=== PATIENT | male | born 1965 | race Two or more races ===

== ENCOUNTER 2020-03-06 05:19 | Emergency (ER) | payer OTHER, SELFPAY ==
[2020-03-06 05:28] VITALS: BP 123/76; PULSE 85; RESP 16; TEMP 36.7; O2SAT 96; BMI 30.7
[2020-03-06 05:44] VITALS: BP 123/65; PULSE 88; RESP 18; TEMP 36.8; O2SAT 96
--- NOTE | 2020-03-06 07:44 | ED.EXTPRO ---
HPI - Extremity Problem General Chief complaint: Extremity Problem Stated complaint: Foot pain Time Seen by Provider: 03/06/20 07:35 Source: patient Mode of arrival: ambulatory Limitations: no limitations History of Present Illness HPI Narrative: is a 54-year-old male who presents with complaints of bilateral foot pain in as he does not have any shoes and is homeless and has been walking around in the streets of [place] with 2 pairs of socks on each foot. He denies any fevers, chills, or trauma. But states his feet are very sore due to walking on them for so long without shoes. Related Data Home Medications Medication Instructions Recorded Confirmed No Known Home Meds 03/06/20 03/06/20 Allergies Allergy/AdvReac Type Severity Reaction Status Date / Time No Known Allergies Allergy Verified 03/06/20 05:27 Review of Systems Review of Systems: Pertinent positives and negatives as stated in HPI 10 point review systems otherwise negative. PMFSH Past Medical History Source: nursing notes reviewed Medical History No known health problems Social History Social History Alcohol intake: current Alcohol intake frequency: a few times a week Alcohol type: beer and hard liquor Smoking Status: Current every day smoker Substance Use Type: Marijuana Substance Use Frequency: Daily Last Used Substance: Days (ago) Advance Directives: No Advance Directives Information Provided: No Physical Exam Vital Signs: Vital Signs: Vital Signs Temp Pulse Resp BP Pulse Ox 03/06/20 08:09 16 03/06/20 05:44 98.2 F 88 18 123/65 96 03/06/20 05:28 98.0 F 85 16 123/76 96 Body Mass Index 30.7 VITAL SIGNS: Reviewed. GENERAL: Well developed, well nourished, in no acute distress. HEAD: Normocephalic/atraumatic, EYES: PERRLA, EOMI intact without pain, no nystagmus/pallor/icterus noted EARS: Ext canals without abnormality, TMs non-bulging and non-erythematous NOSE: Nares patent bilateral OROPHARYNX: no oral lesions noted, posterior pharynx clear and non-erythematous without noted tonsillar enlargement/erythema/exudates NECK: Supple, no adenopathy LUNGS: Normal breath sounds. No adventitious sounds or accessory muscle use. SpO2<96> CARDIOVASCULAR: Regular rate and rhythm without noted murmurs, no JVD or lower extremity edema. ABDOMEN: Soft, non-tender, non-distended with bowel sounds. No rigidity. No guarding. No palpable masses or hernias noted MUSCULOSKELETAL: No tenderness, deformities, or effusions noted on gross inspection. EXTREMITIES: No cyanosis, clubbing or edema; BILATERAL FEET: there is no obvious edema, erythema of the feet, sensation is intact, symmetric palpable DP/PT pulses, there is obvious evidence of an inter digit skin breakdown due to moisture with no obvious signs of ulcerations, deformities SKIN: Inspection of the skin reveals no rashes, ulcerations, jaundice, pallor, or petechiae. NEUROLOGIC: Alert and oriented x 4. Strength and sensation to light touch were grossly intact x 4. Course Course Course Narrative: this is a 54-year-old male with history and clinical presentation consistent with mild bilateral foot injury due to no shoes. There is no evidence for frostbite or trench foot at this time, however due to the mild skin breakdown this is likely to occur if patient is unable to get proper footwear to wear outside. Consult placed to Care Team to assist. Case management was able to provide a pair of size 12 shoes for the patient to use and he was discharged in stable condition. Discharge Plan Discharge Clinical Impression: Foot and toe(s), blister, without mention of infection Patient Disposition: Home, Self-Care Additional Instructions: The patient and/or family acknowledge understanding of results (as applicable), diagnosis, treatment plan, need for follow up, and symptoms that should prompt a return to the emergency room. Prescriptions: No Action No Known Home Meds RF: 0 Referrals: Physician,Unknown [Primary Care Provider] - 2 days
--- NOTE | 2020-03-06 08:07 | PC.NURSE ---
pt resting on stretcher. no distress. consult was placed to CARE team, was told pt had no shoes to wear out of hospital. pt has boots next to bed. when asked pt if he could wear those he states they hurt his feet . spoke with Nemo from care team, she is going to take a look and see if any shoe available for patient.
[2020-03-06 08:09] VITALS: RESP 16
--- NOTE | 2020-03-06 08:32 | PC.NURSE ---
pt given sneakers. pt upset because he is homeless and said shelters have turned him away. 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 RN applied foam dressing to bottom of feet where calluses are. given food and drink. informed pt he can call shelters from waiting room. pt agreeable.
== END 2020-03-06 09:00 | disposition home or self-care (01) ==
PROVIDERS: Emergency Provider Student in an Organized Health Care Education/Training Program
DX: S90.425A Blister (nonthermal), left lesser toe(s), initial encounter (principal); S90.424A Blister (nonthermal), right lesser toe(s), initial encounter; M79.672 Pain in left foot; M79.671 Pain in right foot; X39.8XXA Other exposure to forces of nature, initial encounter; Y93.29 Activity, other involving ice and snow; Y92.410 Unspecified street and highway as the place of occurrence of the external cause; Y99.9 Unspecified external cause status; F12.90 Cannabis use, unspecified, uncomplicated; F17.200 Nicotine dependence, unspecified, uncomplicated; Z71.6 Tobacco abuse counseling; Z59.0 Homelessness
CPT/HCPCS: 99284

== ENCOUNTER 2020-03-17 21:00 | Emergency (ER) | payer OTHER, SELFPAY ==
[2020-03-17 21:13] VITALS: BP 139/84; PULSE 112; RESP 20; TEMP 37.3; O2SAT 98; BMI 27.4
--- NOTE | 2020-03-17 21:27 | XR_ITS ---
EXAMINATION: XR BILATERAL FEET: 3 VIEWS EACH CLINICAL INFORMATION: Swelling COMPARISON: None FINDINGS: No acute fracture or dislocation. Osseous alignment maintained. Small first metatarsophalangeal joint marginal osteophytes. Small tibiotalar marginal osteophytes. Small posterior plantar calcaneal enthesophytes. No ankle joint effusion. Soft tissues unremarkable XR/XR foot LT min 3V IMPRESSION: No acute fracture or dislocation.
--- NOTE | 2020-03-17 21:27 | XR_ITS ---
EXAMINATION: XR BILATERAL FEET: 3 VIEWS EACH CLINICAL INFORMATION: Swelling COMPARISON: None FINDINGS: No acute fracture or dislocation. Osseous alignment maintained. Small first metatarsophalangeal joint marginal osteophytes. Small tibiotalar marginal osteophytes. Small posterior plantar calcaneal enthesophytes. No ankle joint effusion. Soft tissues unremarkable XR/XR foot RT min 3V IMPRESSION: No acute fracture or dislocation.
--- NOTE | 2020-03-17 21:37 | ED_ITS ---
HPI - Extremity Injury (Lower) General Chief Complaint: Extremity Injury, Lower Stated Complaint: Foot Pain Time Seen by Provider: 03/17/20 21:27 Source: patient Mode of arrival: ambulatory Limitations: no limitations History of Present Illness HPI Narrative: This is 54-year-old male who presents with complaints of bilateral foot discomfort and swelling that he states has been ongoing for a number weeks now but denies any associated fevers, chills. He denies any traumatic event to the feet and simply states that he has to walk a lot in [place] and that his feet are sore due to this. Related Data Home Medications Medication Instructions Recorded Confirmed No Known Home Meds 03/06/20 03/06/20 Allergies Allergy/AdvReac Type Severity Reaction Status Date / Time No Known Allergies Allergy Verified 03/06/20 05:27 Review of Systems Review of Systems: Pertinent positives and negatives as stated in HPI 10 point review of systems otherwise negative. [facility] Past Medical History Source: nursing notes reviewed Medical History No known health problems Social History Social History Alcohol intake: current Alcohol intake frequency: a few times a month Alcohol type: beer and hard liquor Smoking Status: Current every day smoker Substance Use Type: Marijuana Advance Directives: No Physical Exam Vital Signs: Vital Signs: Last Vital Signs Temp 99.1 F 03/17/20 21:13 Pulse 112 H 03/17/20 21:13 Resp 20 03/17/20 21:13 BP 139/84 03/17/20 21:13 Pulse Ox 98 03/17/20 21:13 Body Mass Index 27.4 VITAL SIGNS: Reviewed. GENERAL: Well developed, well nourished, in no acute distress. HEAD: Normocephalic/atraumatic, EYES: PERRLA, EOMI intact without pain, no nystagmus/pallor/icterus noted EARS: Ext canals without abnormality, TMs non-bulging and non-erythematous NOSE: Nares patent bilateral OROPHARYNX: no oral lesions noted, posterior pharynx clear and non-erythematous without noted tonsillar enlargement/erythema/exudates NECK: Supple, no adenopathy LUNGS: Normal breath sounds. No adventitious sounds or accessory muscle use. SpO2<98> CARDIOVASCULAR: Regular rate and rhythm without noted murmurs, no JVD or lower extremity edema. ABDOMEN: Soft, non-tender, non-distended with bowel sounds. No rigidity. No guarding. No palpable masses or hernias noted MUSCULOSKELETAL: No tenderness, deformities, or effusions noted on gross inspection. EXTREMITIES: No cyanosis, clubbing or edema; BILATERAL FEET: there are no obvious ulcerations or open wounds on inspection, no noted deformities, capillary refill less than 3 seconds, and otherwise neurovascular intact bilaterally, with noted toe fungus on multiple toes. SKIN: Inspection of the skin reveals no rashes, ulcerations, jaundice, pallor, or petechiae. NEUROLOGIC: Alert and oriented x 4. Strength and sensation to light touch were grossly intact x 4. Course Course Course Narrative: This is a 54-year-old male with history and clinical presentation consistent with poor foot care, but no obvious wounds or evidence to suggest diagnoses such as a trench foot. Will obtain x-rays to ascertain that there are no occult fractures such as stress fractures. This patient does have a new pair tennis shoes available for footwear. Discharge Plan Discharge Clinical Impression: Foot and toe(s), blister, without mention of infection Patient Disposition: Home, Self-Care Instructions: Adrienne (ED) Additional Instructions: 1. Las radiograf?as de nayeli pies son negativas para evidencia de fractura o dislocaci?n. 2. debe cambiarle los calcetines dos veces al d?a para mantener los pies secos y evitar la exposici?n de los pies o las zapatillas al agua. El paciente y / o la alexa reconocen que comprenden los resultados (seg?n corresponda), el diagn?stico, el plan de tratamiento, la necesidad de seguimiento y los s?ntomas que deber?an impulsar el regreso a la luca de emergencias. Prescriptions: No Action No Known Home Meds RF: 0 Referrals: Physician,Unknown [Primary Care Provider] - 2 days Print Language: Thai
== END 2020-03-17 22:47 | disposition home or self-care (01) ==
PROVIDERS: Emergency Provider Student in an Organized Health Care Education/Training Program
DX: S90.822A Blister (nonthermal), left foot, initial encounter (principal); S90.821A Blister (nonthermal), right foot, initial encounter; M79.672 Pain in left foot; M79.671 Pain in right foot; F17.210 Nicotine dependence, cigarettes, uncomplicated; Z71.6 Tobacco abuse counseling
CPT/HCPCS: 73630; 99283

== ENCOUNTER 2020-08-14 18:11 | Emergency (ER) | payer OTHER, SELFPAY ==
--- NOTE | ~2020-08-14 | CT_ITS ---
EXAMINATION: CT HEAD WITHOUT CONTRAST CT CERVICAL SPINE WITHOUT CONTRAST CLINICAL INFORMATION: Possible fall. COMPARISON: None available. TECHNIQUE: Contiguous axial imaging was performed from the skull base to vertex without intravenous administration of contrast. Contiguous axial imaging was performed from the upper chest through the skull base without intravenous administration of contrast. Coronal and sagittal reformats were obtained at the acquisition workstation. This CT examination was performed using dose optimization techniques as appropriate, variously including the following: *Automated exposure control. *Adjustment of mA and/or kV according to patient size (this includes techniques or standardized protocols for targeted exams where dose is matched to indication/reason for exam; i.e. extremities or head). *Use of iterative reconstruction technique. DLP: 1315 mGy-cm FINDINGS: Head: There is no evidence of acute intracranial hemorrhage or edematous territorial infarction. There is no abnormal attenuation within the brain parenchyma. Metz-white matter differentiation is preserved. The ventricles are normal in size and configuration. No evidence for obstructive hydrocephalus. No abnormal mass effect or midline shift. No extra-axial fluid collections. No acute soft tissue or osseous abnormalities. Moderate mucosal thickening of the paranasal sinuses. Mucous retention cyst within the left maxillary sinus. The mastoid air cells and middle ear cavities are clear. Odontogenic disease associated with the bilateral maxillary molars. Cervical Spine: The atlantooccipital and atlantoaxial articulations remain well aligned. Straightening of the normal cervical lordosis. Otherwise, there is anatomic alignment of the vertebral bodies and posterior elements. No evidence of acute fracture or subluxation. Moderate degenerative disc disease from C5-C7 with associated disc-osteophyte complex formation. Facet and uncovertebral joint arthropathy leads to osseous encroachment on the neural foramina from C3-T1. The vertebral body heights are well-maintained. There is no prevertebral soft tissue swelling. The thyroid gland and remaining cervical soft tissues are normal in appearance. The lung apices demonstrate no abnormalities. CT/CT cervical spine wo con IMPRESSION: 1. No evidence of acute intracranial hemorrhage or edematous territorial infarction. 2. No evidence of acute fracture or traumatic subluxation of the cervical spine. 3. Moderate multilevel degenerative spondyloarthropathy of the cervical spine.
[2020-08-14 18:34] VITALS: BP 119/90; BP 180/90; PULSE 82; RESP 16; TEMP 36.7; O2SAT 92; O2SAT 95; BMI 28.2
--- NOTE | 2020-08-14 18:47 | ED_ITS ---
HPI - General Adult General Chief complaint: ETOH/Substance Use Stated complaint: OD Time Seen by Provider: 08/14/20 19:14 Source: patient Mode of arrival: ambulatory Limitations: no limitations History of Present Illness HPI narrative: Patient presents to ED for evaluation for possible overdose. As per EMS report patient responded to 4 mg of Narcan. Patient himself denies any history of opiates. Patient states he has drank only 6 nips of alcohol. Patient states he smoke weed in might have been laced which caused him to pass out. Patient presently does not want any detox. Patient does not want any blood work done. Patient denies falling onto the ground. Related Data Home Medications Medication Instructions Recorded Confirmed cyclobenzaprine 1 tab PO TID 03/21/20 03/21/20 tramadol 1 tab PO BID 03/21/20 03/21/20 Allergies Allergy/AdvReac Type Severity Reaction Status Date / Time No Known Allergies Allergy Verified 03/06/20 05:27 Review of Systems Review of Systems: Yes all other systems are reviewed and are negative Constitutional: Constitutional: Reports as per HPI and Reports no additional constitutional complaints Eyes: Eyes: Reports as per HPI and Reports no additional eye complaints ENT: Reports system reviewed and no additional complaints, except as documented and Reports as per HPI Cardiovascular: Cardiovascular: Reports as per HPI and Reports no additional cardiovascular complaints Respiratory: Respiratory: Reports as per HPI and Reports no additional respiratory complaints Gastrointestinal: Gastrointestinal: Reports as per HPI and Reports no additional gastrointestinal complaints Musculoskeletal: Musculoskeletal: Reports no additional musculoskeletal complaints and Reports as per HPI Neurologic: Reports system reviewed and no additional complaints, except as documented and Reports as per HPI Psychiatric: Psychiatric: Reports no additional psychiatric complaints and Reports as per HPI [facility] Past Medical History Medical History (Updated 08/15/20 @ 00:01 by Balbina Blake) Arthritis Depression History of anxiety History of cardiac murmur Lab test negative for COVID-19 virus Substance abuse Surgical History (Updated 03/21/20 @ 13:27 by Deepti Lund) Hx of excision of mass Hx of right inguinal hernia repair Social History Social History (Updated 03/21/20 @ 13:28 by Deepti Lund) Alcohol intake: current Alcohol intake frequency: a few times a month Alcohol type: beer and hard liquor Smoking Status: Current every day smoker Packs Per Day: 0.75 Cigarettes Per Day: 15.0 Substance Use Type: Marijuana Advance Directives: No Advance Directives Information Provided: Yes Physical Exam Vital Signs: Vital Signs: Last Vital Signs Temp 98.0 F 08/14/20 18:34 Pulse 82 08/14/20 18:34 Resp 16 08/14/20 18:34 BP 119/90 H 08/14/20 18:34 Pulse Ox 92 08/14/20 18:34 Body Mass Index 28.2 Const: General: cooperative, healthy appearing, comfortable, no acute distress, well developed, alert, awake and Physically active Orientation/consciousness: patient oriented x3 HENMT: Head: Yes normal to inspection, Yes No palpable skull fracture present, Yes normocephalic and Yes atraumatic Eyes: General: appearance normal, both eyes and all related structures Neck: Neck: Yes normal visual inspection, Yes full ROM, Yes no lymphadenopathy, Yes no meningeal signs, Yes trachea midline, Yes supple and No tender Chest: Chest palpation & inspection: normal inspection of the chest and normal palpation of entire chest wall Resp: Effort & Inspection: normal respiratory effort and able to speak in complete sentences Cardio: Jugular venous distension: no JVD Heart sounds: S1 normal heart sound present and S2 normal heart sound present GI: Inspection: Yes normal to inspection Palpation (GI): Soft to palpation, not firm, nontender, no guarding and not rigid : General: No CVA tenderness and Yes no CVA tenderness Back/Spine/Pelvis: Back: no CVA tenderness, No CVA tenderness and No back tenderness Skin: General skin exam: no rashes or lesions noted and elasticity normal Neuro: General: patient oriented x3, no meningeal signs and CN's II-XI intact bilaterally Cranial nerves: Yes CN's II-XII intact bilaterally Extrem: General: Yes normal to inspection and Yes full ROM Psych: Appearance: grossly normal, well kempt and not disheveled Course Course Course Narrative: Patient presently is alert oriented x3. Patient presently is not inebriated. Patient wants to be discharged presently, I convinced patient for studies the head CT and cervical spine and observe his O2 saturation. Patient states he was not trying to kill himself. Patient is not homicidal. Reevaluation(s) Reevaluation #1: Patient does not want to wait for CT scan results. Repeat O2 saturation on monitor was 97%. Patient willing to signed out against medical advice even after being informed the risk of , disability, and decreased quality of life due to possible brain bleed, neck fracture, respiratory failure, or possibility of fatal overdose. Patient still wanted to sign out against medical advice. Medical Decision Making MDM Narrative Medical decision making narrative: Substance abuse Discharge Plan Discharge Clinical Impression: Substance abuse Patient Disposition: Left Against Medical Advice Instructions: Polysubstance Abuse (ED) Additional Instructions: Regrese al servicio de urgencias de inmediato si tiene dolor de evan, mareos, n?useas, v?mitos, dolor de pecho, dificultad para respirar, dolor de jesse, dolor abdominal, dolor de espalda, sangrado rectal, v?mitos de tari o cualquier otro s?ntoma que le preocupe. Regrese al servicio de urgencias inmediatamente tambi?n por ideaci?n suicida / homicida y alucinaciones auditivas / visuales. Prescriptions: No Action cyclobenzaprine 10 mg tablet 1 tab PO TID RF: 0 tramadol 50 mg tablet 1 tab PO BID RF: 0 Referrals: Lia Vivas MD [Primary Care Provider] - 2 days (Substance abuse) Stand Alone Forms: Against Medical Advice Interventions: ED Discharge Assessment Last Done: 08/14/20 19:20 Discharge Date/Time: 08/14/20 19:21
--- NOTE | 2020-08-14 18:54 | PC.NURSE ---
Pt refusing to change into hospital attire- searched by security.
== END 2020-08-14 19:21 | disposition left against medical advice (07) ==
PROVIDERS: Emergency Provider Emergency Medicine; PCP Internal Medicine
DX: F19.10 Other psychoactive substance abuse, uncomplicated (principal); F12.10 Cannabis abuse, uncomplicated; F17.210 Nicotine dependence, cigarettes, uncomplicated
CPT/HCPCS: 70450; 72125; 99283; 99284

== ENCOUNTER 2020-09-03 18:12 | Emergency (ER) | payer MEDICAID, SELFPAY ==
[2020-09-03 18:27] VITALS: BP 196/100; O2SAT 96
[2020-09-03 18:28] VITALS: BP 161/84; PULSE 94; RESP 18; TEMP 36.6; O2SAT 96; BMI 28.7
--- NOTE | 2020-09-03 18:51 | ED.OVERDOSE ---
HPI - Overdose General Chief Complaint: Overdose Stated Complaint: OD Time Seen by Provider: 09/03/20 19:07 Source: EMS Mode of arrival: EMS Limitations: no limitations History of Present Illness HPI Narrative: Jose is a 54-year-old male with history of polysubstance abuse he comes in by ambulance with complaint of overdose. He along with 3 other patients who checked in within a 5 minutes. Were all hanging out and overdosed on heroin. He required 4 mg of Narcan for reversal and at scene was found by EMS with agonal breathing and required rescue breaths. Patient immediately awoke admits to using heroin states he did not feel like he used too much and was a necessary for him to get the Narcan. He otherwise feels he is fine he does not need to be here he got off the EMS stretcher directly upon arrival requesting to be discharged. He otherwise denies any pain or discomfort no recent injury. He does not feel that his substance is a problem and is requesting discharge. MD complaint: accidental overdose Onset (ago): minute(s) Timing confirmed by: other (Bystander) Treatments Prior to Arrival: narcan and other (Brief rescue breathing) Related Data Home Medications Medication Instructions Recorded Confirmed cyclobenzaprine 1 tab PO TID 03/21/20 03/21/20 tramadol 1 tab PO BID 03/21/20 03/21/20 Allergies Allergy/AdvReac Type Severity Reaction Status Date / Time No Known Allergies Allergy Verified 03/06/20 05:27 Review of Systems Review of Systems: Constitutional: No Weight loss, No Fever, No Chills, No Night Sweats, No Fatigue, No Malaise ENT/Mouth: No Hearing loss, No Ear Pain, No Nasal Congestion, No Sinus Pain, No Hoarseness, No sore throat, No Rhinorrhea, No Swallowing Difficulty Eyes: No Eye Pain, No Swelling, No Redness, No Foreign Body, No Discharge, No Vision Changes Cardiovascular: No Chest Pain, No SOB, No Dyspnea on Exertion, No Orthopnea, No Edema, No Palpitations Respiratory: No Cough, No Sputum, No Wheezing, No Smoke Exposure, No Dyspnea Gastrointestinal: No Nausea, No Vomiting, No Diarrhea, No Constipation, No abdominal Pain, No Hematochezia, No Melena Genitourinary: No Dysuria, No Urinary Frequency, No Hematuria, No Urinary Incontinence, No Urgency, No Flank Pain, No Urinary Flow Changes, No Hesitancy Musculoskeletal: No joint pain, No Myalgias, No Joint Swelling Skin: No Skin Lesions, No rash Neuro: No Weakness, No Numbness, No Paresthesias, No Loss of Consciousness, No Dizziness, No Headache Psych: No Anxiety/Panic, No Depression, No SI/HI/AH/VH, No Social Issues Heme/Lymph: No Bruising, No Bleeding,No Lymphadenopathy Endocrine: No Polyuria, No Polydipsia, No Temperature Intolerance Yes all other systems are reviewed and are negative [facility] Past Medical History Medical History Arthritis Depression History of anxiety History of cardiac murmur Lab test negative for COVID-19 virus Substance abuse Surgical History Hx of excision of mass Hx of right inguinal hernia repair Social History Social History (Updated 03/21/20 @ 13:28 by Deepti Lund) Alcohol intake: current Alcohol intake frequency: a few times a month Alcohol type: beer and hard liquor Smoking Status: Current every day smoker Packs Per Day: 0.75 Cigarettes Per Day: 15.0 Substance Use Type: Marijuana Advance Directives: No Advance Directives Information Provided: Yes Physical Exam Vital Signs: Vital Signs: Last Vital Signs Temp 97.8 F 09/03/20 18:28 Pulse 94 09/03/20 18:28 Resp 18 09/03/20 18:28 BP 161/84 H 09/03/20 18:28 Pulse Ox 96 09/03/20 18:28 Body Mass Index 28.7 Reviewed Const: General: cooperative; No acute distress or intoxicated appearing Nutritional Appearance: average body habitus Orientation/consciousness: patient oriented x3 HENMT: Head: Yes normal to inspection Ears: hearing grossly normal bilaterally Eyes: General: appearance normal, both eyes and all related structures Visual Wan: normal visual wan by confrontation Neck: Neck: Yes normal visual inspection, No positive Brudzinski's sign, No positive Kernig's sign and No tender Thyroid: Thyroid normal Chest: Chest palpation & inspection: normal inspection of the chest Resp: Effort & Inspection: normal respiratory effort Auscultation: clear to auscultation bilaterally Cardio: Jugular venous distension: no JVD Rhythm: regular rhythm Heart sounds: S1 normal heart sound present and S2 normal heart sound present GI: Inspection: Yes normal to inspection Palpation (GI): Soft to palpation Percussion: Yes normal to percussion Auscultation: normal bowel sounds : General: Yes no CVA tenderness Back/Spine/Pelvis: Back: no CVA tenderness Skin: General skin exam: no rashes or lesions noted Neuro: General: patient oriented x3 Extrem: General: Yes normal to inspection Course Reevaluation(s) Reevaluation #1: 1845 Advised given that he was working that he must be observed for at least 1 hour. His somewhat reluctant but agreeable would like food in no acute distress. He is ambulatory. He is requesting something to eat he was given a sandwich and drink. He does not want to speak to recovery operator helper I will offer this again upon re-evaluation. Reevaluation #2: 0 Continues to walk around the ED does not want detox services. Requesting discharge. He declined to speak to peer recovery Services does not feel that he is a problem. Advise him that if he continues to use illicit drugs cause serious harm to his organ and ultimately cause unexpectedly including overdose. Discharge Plan Discharge Clinical Impression: Accidental heroin overdose, Active substance abuse Patient Disposition: Home, Self-Care Instructions: Polysubstance Abuse (ED), Opioid Safety (ED) Additional Instructions: Please stop doing illicit drugs Please seek detox Follow up with her primary care doctor Follow-up with [facility] [place] Return if any concerns or worsening symptoms Thank you Prescriptions: No Action cyclobenzaprine 10 mg tablet 1 tab PO TID RF: 0 tramadol 50 mg tablet 1 tab PO BID RF: 0 Referrals: Physician,Unknown [Primary Care Provider] - 1 day
== END 2020-09-03 19:16 | disposition home or self-care (01) ==
PROVIDERS: Emergency Provider Internal Medicine
DX: T40.1X1A Poisoning by heroin, accidental (unintentional), initial encounter (principal); R06.89 Other abnormalities of breathing; Y92.9 Unspecified place or not applicable; F11.10 Opioid abuse, uncomplicated; F19.10 Other psychoactive substance abuse, uncomplicated; F17.210 Nicotine dependence, cigarettes, uncomplicated; F12.90 Cannabis use, unspecified, uncomplicated
CPT/HCPCS: 99283; 99284

== ENCOUNTER 2020-09-11 13:41 | Emergency (ER) | payer MEDICAID, SELFPAY ==
--- NOTE | ~2020-09-11 | XR_ITS ---
EXAMINATION: XR HAND, LEFT CLINICAL INFORMATION: Trauma, pain COMPARISON: Radiographs left hand 09/21/2019 TECHNIQUE: PA, lateral, and oblique views of the left hand. FINDINGS: There is old healed fracture involving the neck left fifth metacarpal similar to prior study 09/21/2019. There is new subtle angulation neck fourth metacarpal with questionable acute cortical disruption on the oblique view. This may be correlated with patient's symptoms and clinical exam to confirm acute fracture. The remainder of the bony structures appear intact. The ulnar variance is neutral. Again, there is a small metallic foreign body overlying the distal dorsal wrist soft tissues similar to prior exam. There is a stable nonmineralized cyst distal pole carpal navicular and stable punctate bud-articular ossific densities adjacent to interphalangeal joints from and medial side second MCP joint. XR/XR hand LT min 3V IMPRESSION: 1. Subtle angulation neck fourth metacarpal with probable fine cortical disruption on oblique view. Finding is new from prior radiographs 09/21/2019. Recommend correlation with patient's symptoms and clinical exam to confirm acute injury. 2. Old healed fracture left fifth metacarpal neck.
[2020-09-11 13:55] VITALS: BP 135/73; PULSE 70; RESP 18; TEMP 36.6; O2SAT 95; BMI 27.3
--- NOTE | 2020-09-11 15:10 | ED.EXTPRO ---
HPI - Extremity Problem General Chief complaint: Extremity Injury, Upper Stated complaint: HAND INJ Time Seen by Provider: 09/11/20 15:10 History of Present Illness HPI Narrative: Patient fell yesterday injuring left hand, no other injury no numbness weakness or tingling no head injury no neck injury or back injury Related Data Home Medications Medication Instructions Recorded Confirmed cyclobenzaprine 1 tab PO TID 03/21/20 03/21/20 tramadol 1 tab PO BID 03/21/20 03/21/20 Previous Rx's Medication Instructions Recorded ibuprofen 600 mg PO Q6H PRN #20 tab 09/11/20 oxycodone-acetaminophen [Percocet] 1 tab PO Q6H PRN #10 tab 09/11/20 oxycodone-acetaminophen [Percocet] 1 tab PO Q6H PRN #14 tab 09/11/20 Allergies Allergy/AdvReac Type Severity Reaction Status Date / Time No Known Allergies Allergy Verified 03/06/20 05:27 Review of Systems Review of Systems: Positive for left hand pain No dizziness no weakness no fainting no headache no neck pain no chest pain no back pain no numbness weakness or tingling Yes all other systems are reviewed and are negative PMFSH Past Medical History Source: nursing notes reviewed Medical History Arthritis Depression History of anxiety History of cardiac murmur Lab test negative for COVID-19 virus Substance abuse Surgical History Hx of excision of mass Hx of right inguinal hernia repair Social History Social History (Updated 03/21/20 @ 13:28 by Deepti Ludn) Alcohol intake: current Alcohol intake frequency: a few times a month Alcohol type: beer and hard liquor Smoking Status: Current every day smoker Packs Per Day: 0.75 Cigarettes Per Day: 15.0 Substance Use Type: Marijuana Advance Directives: No Advance Directives Information Provided: Yes Physical Exam Vital Signs: Vital Signs: Last Vital Signs Temp 97.8 F 09/11/20 13:55 Pulse 70 09/11/20 13:55 Resp 18 09/11/20 13:55 BP 135/73 09/11/20 13:55 Pulse Ox 95 09/11/20 13:55 Body Mass Index 27.3 General appearance no acute distress Head is normocephalic atraumatic The neck is supple Respiratory no acute distress The left hand head tenderness ulnar aspect of the hand as well as swelling, there is pain with range of motion in both the wrist and the hand, there is no swelling of the wrist, it is neurovascular intact distal and the skin is intact No gross motor or sensory deficit Course Course Course Narrative: X-ray showed a possible left 4th metacarpal fracture, patient was splinted with ulnar gutter splint and will follow with Orthopedics Discharge Plan Discharge Clinical Impression: Hand fracture, left Patient Disposition: Home, Self-Care Additional Instructions: Follow with orthopedist within 1 week, call the office today Return any time any concerns Prescriptions: New ibuprofen 600 mg tablet 600 mg PO Q6H PRN (Reason: pain) Qty: 20 RF: 0 oxycodone-acetaminophen [Percocet] 5-325 mg tablet 1 tab PO Q6H PRN (Reason: pain) Qty: 14 RF: 0 oxycodone-acetaminophen [Percocet] 5-325 mg tablet 1 tab PO Q6H PRN (Reason: pain) Qty: 10 RF: 0 No Action cyclobenzaprine 10 mg tablet 1 tab PO TID RF: 0 tramadol 50 mg tablet 1 tab PO BID RF: 0 Referrals: Dunia Owen MD [Physician] - 2 days (Left hand 4th metacarpal fracture) Interventions: ED Discharge Assessment Last Done: 09/11/20 15:19 Discharge Date/Time: 09/11/20 15:20
== END 2020-09-11 15:20 | disposition home or self-care (01) ==
PROVIDERS: Emergency Provider Emergency Medicine; PCP Internal Medicine
DX: S62.365A Nondisplaced fracture of neck of fourth metacarpal bone, left hand, initial encounter for closed fracture (principal); W22.8XXA Striking against or struck by other objects, initial encounter; Y93.89 Activity, other specified; Y92.89 Other specified places as the place of occurrence of the external cause; Y99.8 Other external cause status; F17.210 Nicotine dependence, cigarettes, uncomplicated; F12.90 Cannabis use, unspecified, uncomplicated
CPT/HCPCS: 73130; 99283

== ENCOUNTER 2020-09-14 16:21 | Emergency (ER) | payer MEDICAID, SELFPAY ==
[2020-09-14 16:27] VITALS: BP 160/90; BP 161/93; PULSE 120; PULSE 98; RESP 20; TEMP 37.1; O2SAT 95; BMI 26.6
--- NOTE | 2020-09-14 16:39 | ED.OVERDOSE ---
HPI - Overdose General Chief Complaint: General Medical <ANJANA Elam - Last Filed: 09/14/20 19:47> Stated Complaint: OD <ANJANA Elam - Last Filed: 09/14/20 19:47> Time Seen by Provider: 09/14/20 16:33 <ANJANA Elam Last Filed: 09/14/20 19:47> Source: patient and EMS <ANJANA Elam Last Filed: 09/14/20 19:47> Mode of arrival: EMS <ANJANA Elam Last Filed: 09/14/20 19:47> Limitations: language barrier <ANJANA Elam Last Filed: 09/14/20 19:47> History of Present Illness HPI Narrative: 54 y/o male with history of old left hand fracture seen here 09/11 and discharged with Percocet (#14) and Ibuprofen who presents to the ED via EMS after he was [place] and would not wake up. EMS reported patient was stiff and there was concern for overdose he was administered Narcan with improvement in his mental status. He arrives to the ER AAO x4, speaking rapidly about needing to go to work and worrying about losing his job. He denies accidental or intentional overdose of his prescribed Percocet. He states he was taking them as directed. Denies additional opiate use. Denies ETOH use. <ANJANA Elam - Last Filed: 09/14/20 19:47> MD complaint: accidental overdose <ANJANA Elam Last Filed: 09/14/20 19:47> Intent: unknown <ANJANA Elam Last Filed: 09/14/20 19:47> How Overdose Was Discovered: other (bystander called 911) <ANJANA Elam Last Filed: 09/14/20 19:47> Context: Accidental Overdose: uncertain what happened <ANJANA Elam Last Filed: 09/14/20 19:47> Treatments Prior to Arrival: narcan <ANJANA Elam Last Filed: 09/14/20 19:47> Related Data Home Medications: Home Medications Medication Instructions Recorded Confirmed cyclobenzaprine 1 tab PO TID 03/21/20 03/21/20 tramadol 1 tab PO BID 03/21/20 03/21/20 Previous Rx's Medication Instructions Recorded ibuprofen 600 mg PO Q6H PRN #20 tab 09/11/20 oxycodone-acetaminophen [Percocet] 1 tab PO Q6H PRN #10 tab 09/11/20 oxycodone-acetaminophen [Percocet] 1 tab PO Q6H PRN #14 tab 09/11/20 <ANJANA Elam - Last Filed: 09/14/20 19:47> Allergies/Adverse Reactions: Allergies Allergy/AdvReac Type Severity Reaction Status Date / Time No Known Allergies Allergy Verified 03/06/20 05:27 <ANJANA Elam Last Filed: 09/14/20 19:47> Review of Systems Review of Systems: Constitutional: No Fever, No Chills ENT/Mouth: No sore throat, No Rhinorrhea Cardiovascular: No Chest Pain, No SOB Respiratory: No Cough, No Sputum, No Wheezing, No dyspnea Gastrointestinal: No Nausea, No Vomiting, No Diarrhea, No abdominal Pain Musculoskeletal: No joint pain, No Myalgias Skin: No Skin Lesions, No rash Neuro: No Weakness, No Numbness, No Dizziness, No Headache Psych: + Anxiety/Panic, No Depression, No SI/HI, No AH/VH Heme/Lymph: No Bruising, No Lymphadenopathy <ANJANA Elam Last Filed: 09/14/20 19:47> PMFSH Past Medical History Attestation statement: The following information was validated with the patient. <ANJANA Elam - Last Filed: 09/14/20 19:47> Medical History: Medical History Arthritis Depression History of anxiety History of cardiac murmur Lab test negative for COVID-19 virus Substance abuse <ANJANA Elam Last Filed: 09/14/20 19:47> Surgical History: Surgical History Hx of excision of mass Hx of right inguinal hernia repair <ANJANA Elam Last Filed: 09/14/20 19:47> Social History Social History: Social History (Updated 03/21/20 @ 13:28 by Deepti Lund) Alcohol intake: current Alcohol intake frequency: a few times a month Alcohol type: beer and hard liquor Cigarette Packs Per Day: 0.75 Cigarettes Per Day: 15.0 Substance Use Type: Marijuana Advance Directives: No Advance Directives Information Provided: No <ANJANA Elam - Last Filed: 09/14/20 19:47> Physical Exam Vital Signs: Vital Signs: Last Vital Signs Temp 98.7 F 09/14/20 16:27 Pulse 98 09/14/20 16:27 Resp 20 09/14/20 16:27 BP 161/93 H 09/14/20 16:27 Pulse Ox 95 09/14/20 16:27 Body Mass Index 26.6 Appearance: Alert. Oriented X3. No acute distress. Eyes: Pupils equal, round and reactive to light, 3mm. ENT: Pharynx normal. Neck: Normal inspection. Neck supple. CVS: Normal heart rate and rhythm. Pulses normal. Respiratory: No respiratory distress. Breath sounds normal. Abdomen: Soft and nontender. +BS x4 Skin: Skin warm and dry. Normal skin color. Normal skin turgor. No rashes. Extremities: No lower extremity edema. no track chau. left hand with mild tenderness and swelling over 4th and 5th carpals Neuro: Oriented X 3. No motor deficit. No sensory deficit. Speaks in complete sentences, walks with a steady gait. eating and drinking. <ANJANA Elam - Last Filed: 09/14/20 19:47> Vital Signs: Last Vital Signs Temp 98.7 F 09/14/20 16:27 Pulse 98 09/14/20 16:27 Resp 20 09/14/20 16:27 BP 161/93 H 09/14/20 16:27 Pulse Ox 95 09/14/20 16:27 Body Mass Index 26.6 <René Grajeda MD - Last Filed: 10/08/20 07:15> Course Course Course Narrative: 54 y/o male presenting with accidental overdose of his prescribed Percocet. s/p Narcan in the field, reported 0.7mg?? He is AAO x4 and approrirate. He denies illicit drug use but has a history of heroin OD in the past. Dillon from CARE team to discuss safety and options with patient. <ANJANA Elam - Last Filed: 09/14/20 19:47> I have reviewed the chart <René Grajeda MD - Last Filed: 10/08/20 07:15> Reevaluation(s) Reevaluation #1: Patient continues to be AAO x3. Pacing in the room. Will monitor for 30 more minutes and then discharge home. He declined detox. <ANJANA Elam - Last Filed: 09/14/20 19:47> Reevaluation #2: Patient monitored in the ER for 2 hours. AAO. Stable for d/c. Bus pass provided. Ambulates with steady gait. <ANJANA Elam - Last Filed: 09/14/20 19:47> Consultations Consultation #1: CARE TEAM <ANJANA Elam - Last Filed: 09/14/20 19:47> Critical Care Time Critical Care Time Critical Care Time: No <ANJANA Elam - Last Filed: 09/14/20 19:47> Discharge Plan Discharge Clinical Impression: Accidental overdose <ANJANA Elam - Last Filed: 09/14/20 19:47> Patient Disposition: Home, Self-Care <ANJANA Elam - Last Filed: 09/14/20 19:47> Instructions: Prescription Opioid Overdose (ED) <ANJANA Elam - Last Filed: 09/14/20 19:47> Additional Instructions: DO NOT USE HEROIN OR ANY ILLICIT DRUGS. DO NOT TAKE PERCOCET OTHER THAN HOW IT IS PRESCRIBED. <ANJANA Elam - Last Filed: 09/14/20 19:47> Prescriptions: No Action cyclobenzaprine 10 mg tablet 1 tab PO TID RF: 0 tramadol 50 mg tablet 1 tab PO BID RF: 0 ibuprofen 600 mg tablet 600 mg PO Q6H PRN (Reason: pain) Qty: 20 RF: 0 oxycodone-acetaminophen [Percocet] 5-325 mg tablet 1 tab PO Q6H PRN (Reason: pain) Qty: 14 RF: 0 oxycodone-acetaminophen [Percocet] 5-325 mg tablet 1 tab PO Q6H PRN (Reason: pain) Qty: 10 RF: 0 <ANJANA Elam - Last Filed: 09/14/20 19:47> Interventions: ED Discharge Assessment Last Done: 09/14/20 18:10 <ANJANA Elam - Last Filed: 09/14/20 19:47> Discharge Date/Time: 09/14/20 18:11 <ANJANA Elam - Last Filed: 09/14/20 19:47>
--- NOTE | 2020-09-14 17:03 | MHC.RECOVSUP ---
Recovery Support note: Patient is a 54 year old Cymro speaking male who presented to [facility] via EMS after an accidental overdose. This technical document writer attempted to meet with patient to discuss substance use and supports. Patient reported that he never wanted to use drugs however he signed a paper and was given drugs by a doctor years ago and that he became addicted as a result. Patient reports he has lost his family, friends and job as a result. Patient also expressed anger regarding a visit to the hospital where blood was drawn when patient did not want to be stuck by a needle. This technical document writer attempted to discuss these events with patient however patient continued to escalate and get upset, preventing any discussion from occurring. This technical document writer is available if patient would like to discuss his substance use.
== END 2020-09-14 18:11 | disposition home or self-care (01) ==
PROVIDERS: Emergency Provider Emergency Medicine; PCP Internal Medicine
DX: T40.2X1A Poisoning by other opioids, accidental (unintentional), initial encounter (principal); F11.10 Opioid abuse, uncomplicated; Y92.9 Unspecified place or not applicable; F17.210 Nicotine dependence, cigarettes, uncomplicated; Z71.6 Tobacco abuse counseling; Z79.899 Other long term (current) drug therapy
CPT/HCPCS: 99283

== ENCOUNTER 2020-10-06 10:40 | Emergency (ER) | payer MEDICAID, SELFPAY ==
[2020-10-06 10:44] VITALS: BP 151/68; PULSE 86; O2SAT 97
[2020-10-06 10:45] VITALS: BP 141/78; PULSE 98; RESP 20; TEMP 37.2; O2SAT 97; BMI 26.6
--- NOTE | 2020-10-06 10:55 | ED_ITS ---
HPI - Overdose General Chief Complaint: Overdose Stated Complaint: HEROIN OD,NARCAN GIVEN W/GOOD RESULT Time Seen by Provider: 10/06/20 10:55 History of Present Illness HPI Narrative: Patient is a 54-year-old male found in an intersection inside his truck. Patient completely passed out. EMS noted patient to have decreased respiration. Patient was given Narcan by fire department and also BiPAP medics. Subsequently became awake alert agitated. Patient admits to using heroin. Related Data Home Medications Medication Instructions Recorded Confirmed cyclobenzaprine 1 tab PO TID 03/21/20 03/21/20 tramadol 1 tab PO BID 03/21/20 03/21/20 Previous Rx's Medication Instructions Recorded ibuprofen 600 mg PO Q6H PRN #20 tab 09/11/20 oxycodone-acetaminophen [Percocet] 1 tab PO Q6H PRN #10 tab 09/11/20 oxycodone-acetaminophen [Percocet] 1 tab PO Q6H PRN #14 tab 09/11/20 Allergies Allergy/AdvReac Type Severity Reaction Status Date / Time No Known Allergies Allergy Verified 03/06/20 05:27 Review of Systems Review of Systems: Constitutional: No Weight loss, No Fever, No Chills, No Night Sweats, No Fatigue, No Malaise ENT/Mouth: No Hearing loss, No Ear Pain, No Nasal Congestion, No Sinus Pain, No Hoarseness, No sore throat, No Rhinorrhea, No Swallowing Difficulty Eyes: No Eye Pain, No Swelling, No Redness, No Foreign Body, No Discharge, No Vision Changes Cardiovascular: No Chest Pain, No SOB, No Dyspnea on Exertion, No Orthopnea, No Edema, No Palpitations Respiratory: No Cough, No Sputum, No Wheezing, No Smoke Exposure, No Dyspnea Gastrointestinal: No Nausea, No Vomiting, No Diarrhea, No Constipation, No abdominal Pain, No Hematochezia, No Melena Genitourinary: no irregular bleeding, No Dysuria, No Urinary Frequency, No Hematuria, No Urinary Incontinence, No Urgency, No Flank Pain, No Urinary Flow Changes, No Hesitancy Musculoskeletal: No joint pain, No Myalgias, No Joint Swelling Skin: No Skin Lesions, No rash Neuro: No Weakness, No Numbness, No Paresthesias, No Loss of Consciousness, No Dizziness, No Headache Psych: No Anxiety/Panic, No Depression, No SI/HI/AH/VH, No Social Issues, Heme/Lymph: No Bruising, No Bleeding,No Lymphadenopathy Endocrine: No Polyuria, No Polydipsia, No Temperature Intolerance [facility] Past Medical History Medical History Arthritis Depression History of anxiety History of cardiac murmur Lab test negative for COVID-19 virus Substance abuse Surgical History Hx of excision of mass Hx of right inguinal hernia repair Social History Social History (Updated 03/21/20 @ 13:28 by Deepti Lund) Alcohol intake: current Alcohol intake frequency: a few times a month Alcohol type: beer and hard liquor Cigarette Packs Per Day: 0.75 Cigarettes Per Day: 15.0 Substance Use Type: Marijuana Advance Directives: No Advance Directives Information Provided: No Physical Exam Vital Signs: Vital Signs: Last Vital Signs Temp 98.9 F 10/06/20 10:45 Pulse 98 10/06/20 10:45 Resp 20 10/06/20 10:45 BP 141/78 H 10/06/20 10:45 Pulse Ox 97 10/06/20 10:45 Body Mass Index 26.6 Appearance: Alert. Oriented X3. No acute distress. Eyes: Pupils equal, round and reactive to light. ENT: Pharynx normal. Neck: Normal inspection. Neck supple. No lymph nodes noted. No crepitus CVS: Normal heart rate and rhythm. Pulses normal. Normal S1 and S2 Respiratory: No respiratory distress. Breath sounds normal. No Wheezing. No rales Abdomen: Soft and nontender. No rigidity. No distention. good BS x4 Skin: Skin warm and dry. Normal skin color. Normal skin turgor. Extremities: No lower extremity edema. Neurovascular intact to all extremities. No Lacerations. No Rash Neuro: Oriented X 3. No motor deficit. No sensory deficit. Moving all extermities. No slurred speech MDM - Overdose MDM Narrative Medical decision making narrative: Patient monitor for over 1 hour. He is now awake alert yelling and screaming. He is not suicidal homicidal. Patient did not want any further help with detox. Will discharge patient home. Close follow-up outpatient basis. A list of detox was still provided to him. Patient did not want Narcan. Discharge Plan Discharge Clinical Impression: Drug overdose Patient Disposition: Home, Self-Care Instructions: Narcotic Use Disorder (ED) Additional Instructions: Please stop using heroin. Using heroin almost killed you today. you stop in the middle of an intersection after passing out on Heroin. You could hurt somebody, you could hurt herself. Please stop Prescriptions: No Action cyclobenzaprine 10 mg tablet 1 tab PO TID RF: 0 tramadol 50 mg tablet 1 tab PO BID RF: 0 ibuprofen 600 mg tablet 600 mg PO Q6H PRN (Reason: pain) Qty: 20 RF: 0 oxycodone-acetaminophen [Percocet] 5-325 mg tablet 1 tab PO Q6H PRN (Reason: pain) Qty: 14 RF: 0 oxycodone-acetaminophen [Percocet] 5-325 mg tablet 1 tab PO Q6H PRN (Reason: pain) Qty: 10 RF: 0 Referrals: Lai Vivas MD [Primary Care Provider] - 2 days
--- NOTE | 2020-10-06 12:29 | MHC.RECOVSUP ---
Recovery Support note: Patient is a 54 year old Urdu speaking male who presented to [facility] after an accidental overdose. This television writer met with patient to discuss his substance use and treatment options. Patient became very animated, loudly stating the different ways his family has done wrong by him. This television writer listened and offered support. Patient declines detox at this time, stating he does not need it. Patient reports interest in going to [facility] [employer] [facility] in [place] as he has a job he is starting in [place] Thursday morning. This television writer called [employer] and they report no openings until Thursday. Informed patient of this. Patient is not agreeable to going to [facility] for jail. Patient reports he wants to go to the police station to get his belongings back. Patient reports he knows where the police station is and he is comfortable walking there. Patient discharged to collect his belongings from the police station.
== END 2020-10-06 12:11 | disposition home or self-care (01) ==
PROVIDERS: Emergency Provider Emergency Medicine Emergency Medical Services; PCP Internal Medicine
DX: T40.1X1A Poisoning by heroin, accidental (unintentional), initial encounter (principal); F11.10 Opioid abuse, uncomplicated; Y92.9 Unspecified place or not applicable; F12.90 Cannabis use, unspecified, uncomplicated; Z71.51 Drug abuse counseling and surveillance of drug abuser; F17.210 Nicotine dependence, cigarettes, uncomplicated; Z71.6 Tobacco abuse counseling
CPT/HCPCS: 99283

== ENCOUNTER 2021-09-10 12:46 | Outpatient (REF) | payer MEDICAID, SELFPAY ==
--- NOTE | ~2021-09-10 | XR_ITS ---
EXAMINATION: XR CHEST XR BILATERAL RIBS CLINICAL INFORMATION: Hemoptysis and pleurodynia. COMPARISON: None. TECHNIQUE: Chest 2 views. Bilateral ribs 3 views. FINDINGS: Chest: Both lungs are fairly well expanded with right parahilar patchy opacity, question focal mass versus infiltrate. The rest of lungs are clear. The heart size and pulmonary vascularity are normal. No acute gross bony pneumonitis seen. Bilateral Ribs: Multiple views of bilateral ribs reveal no fracture or bony abnormality. The soft tissues are normal. XR/XR ribs BI 3V IMPRESSION: Right parahilar opacity suspicious for underlying mass. Differential diagnosis includes infiltrate. No visible rib fractures or bony abnormality seen on either side.
--- NOTE | ~2021-09-10 | XR_ITS ---
EXAMINATION: XR CHEST XR BILATERAL RIBS CLINICAL INFORMATION: Hemoptysis and pleurodynia. COMPARISON: None. TECHNIQUE: Chest 2 views. Bilateral ribs 3 views. FINDINGS: Chest: Both lungs are fairly well expanded with right parahilar patchy opacity, question focal mass versus infiltrate. The rest of lungs are clear. The heart size and pulmonary vascularity are normal. No acute gross bony pneumonitis seen. Bilateral Ribs: Multiple views of bilateral ribs reveal no fracture or bony abnormality. The soft tissues are normal. XR/XR chest 2V IMPRESSION: Right parahilar opacity suspicious for underlying mass. Differential diagnosis includes infiltrate. No visible rib fractures or bony abnormality seen on either side.
== END 2021-09-10 12:47 | disposition home or self-care (01) ==
LOC: HO.XRAY 12:46
PROVIDERS: Absent Provider Nurse Practitioner Primary Care; PCP Nurse Practitioner Primary Care; Visit Provider Emergency Medicine
DX: R07.81 Pleurodynia (principal); R04.2 Hemoptysis
CPT/HCPCS: 71046; 71110

== ENCOUNTER 2021-10-18 20:52 | Emergency (ER) | payer MEDICAID, SELFPAY ==
[2021-10-18 20:56] VITALS: BP 170/90; PULSE 80; O2SAT 97
[2021-10-18 21:07] VITALS: BP 162/92; PULSE 96; RESP 8; O2SAT 81; BMI 28.2
[2021-10-18 21:10] VITALS: O2SAT 95
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
[2021-10-18] MEDS: Naloxone HCl Nasal 4 MG SPRAY NOSTRILALT (21:25)
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
[2021-10-18] MEDS: Naloxone HCl Nasal TAKE HOME 4 MG SPRAY NOSTRILALT (21:51)
== END 2021-10-18 22:10 | disposition home or self-care (01) ==
PROVIDERS: Emergency Provider Emergency Medicine Emergency Medical Services; PCP Nurse Practitioner Primary Care
DX: T40.2X1A Poisoning by other opioids, accidental (unintentional), initial encounter (principal); Y92.410 Unspecified street and highway as the place of occurrence of the external cause
CPT/HCPCS: 99282; 99283

== ENCOUNTER 2021-10-24 08:22 | Outpatient (REF) | payer MEDICAID, SELFPAY ==
--- NOTE | 2021-10-24 | PFT_ITS ---
Forced vital capacity 105%. FEV1 109%. FEV1/FVC ratio is 81, [id number] 110% and MVV 93%. Post bronchodilator therapy, there is no significant change except for slight further improvement in [id number]. Total lung capacity 105% and residual volume 108%. Diffusion capacity 82%. CONCLUSION: Basically, this is a normal pulmonary function test and there is no evidence of obstructive or restrictive pulmonary disorder. Significant response shown by improved [id number] may indicate mild spastic disorder in the small airways, but this should be correlated with clinical picture. Compared to the results of 03/01/2018, there is no significant change. MD CHANDNI Hough/MODL / [id number]
== END 2021-10-24 08:23 | disposition home or self-care (01) ==
LOC: HO.RESP 08:22
PROVIDERS: PCP Nurse Practitioner Primary Care; Visit Provider Emergency Medicine
DX: R05.9 Cough, unspecified (principal)
CPT/HCPCS: 94060; 94727; 94729

== ENCOUNTER 2021-11-06 10:14 | Outpatient (REF) | payer MEDICAID, SELFPAY ==
--- NOTE | ~2021-11-06 | XR_ITS ---
EXAMINATION: XR CHEST CLINICAL INFORMATION: Pneumonia follow-up COMPARISON: None TECHNIQUE: 2 views of the chest were obtained. FINDINGS: Interval improvement with almost complete resolution of the right perihilar infiltrate. Minimal patchy linear infiltrate persists in the right midlung. Continued follow-up until complete resolution is advised. Lungs otherwise clear. Heart and pulmonary vessels are normal. XR/XR chest 2V IMPRESSION: Interval improvement. Continued follow-up advised.
== END 2021-11-06 10:15 | disposition home or self-care (01) ==
LOC: HO.XRAY 10:14
PROVIDERS: PCP Emergency Medicine; Visit Provider Hospitalist
DX: R91.8 Other nonspecific abnormal finding of lung field (principal); J18.9 Pneumonia, unspecified organism; R04.2 Hemoptysis
CPT/HCPCS: 71046; 99202

== ENCOUNTER 2022-05-09 10:10 | Outpatient (REF) | payer MEDICAID, SELFPAY ==
--- NOTE | ~2022-05-09 | XR_ITS ---
EXAMINATION: XR CHEST CLINICAL INFORMATION: Pneumonia follow-up. COMPARISON: Chest 11/06/2021 TECHNIQUE: 2 views of the chest were obtained. FINDINGS: No significant abnormality is noted involving the heart, lungs, mediastinum, bony thorax or soft tissues. XR/XR chest 2V IMPRESSION: Unremarkable chest examination.
[2022-05-09 11:09] LABS: MANUAL DIFF FLAG NO
[2022-05-09 11:56] LABS: Basophils Percent Auto 0.5 % (0-2); Eosinophils Absolute Auto 0.2 X10*3/uL (0.0-0.4); Eosinophils Percent Auto 4.2 % (0-4); Hemoglobin 13.6 g/dl (14.0-18.0); Imm Gran Abs Auto 0.03 X10*3/uL (0.00-0.03); Imm Gran Pct Auto 0.5 % (0.0-0.4); Lymphocytes Absolute Auto 2.1 X10*3/uL (1.2-4.9); Lymphocytes Percent Auto 36.8 % (20-40); Mean Corpuscular HGB Conc 33.2 g/dl (31.0-36.0); Mean Corpuscular Hemoglobin 31.4 pg (27.0-33.0); Mean Corpuscular Volume 94.7 fL (80.0-98.0); Mean Platelet Volume 11.2 fL (9.4-12.4); Monocytes Absolute Auto 0.5 X10*3/uL (0.1-1.2); Monocytes Percent Auto 9.3 % (2-11); Neutrophils Absolute Auto 2.8 x10*3/uL (2.0-8.3); Neutrophils Percent Auto 48.7 % (45-73); Platelet Count 236 X10*3/uL (160-400); Red Blood Count 4.33 X10*6/uL (4.60-5.80); Red Cell Distribution Width 13.9 % (11.0-16.0); White Blood Count 5.7 X10*3/uL (4.8-10.8)
[2022-05-09 12:37] LABS: Anion Gap 14 (12-20); Blood Urea Nitrogen 15 mg/dL (9-16); Calcium 9.8 mg/dL (8.4-10.2); Carbon Dioxide 25 mmol/L (22-29); Chloride 104 mmol/L (96-108); Estimated Glomerular Filt Rate > 60; Glucose Random 88 mg/dL (60-115); Potassium 4.6 mmol/L (3.3-5.1); Sodium 138 mmol/L (135-145)
[2022-05-09 12:39] LABS: Erythrocyte Sedimentation Rate 2 MM/HR (0-15)
[2022-05-15 10:44] LABS: CK-BB None Detected (None Detected); CK-MB 0 % (<5); CK-MM 100 % (95-100); Creatine Kinase,Total,Serum 172 U/L (44-196)
== END 2022-05-09 10:11 | disposition home or self-care (01) ==
LOC: HO.XRAY 10:10
PROVIDERS: PCP Nurse Practitioner Primary Care; Visit Provider Hospitalist
DX: R07.9 Chest pain, unspecified (principal); R91.8 Other nonspecific abnormal finding of lung field; J18.9 Pneumonia, unspecified organism
CPT/HCPCS: 36415; 71046; 80048; 82552; 85025; 85652; 99212

== ENCOUNTER 2022-08-11 13:51 | Emergency (ER) | payer MEDICAID, SELFPAY ==
[2022-08-11 13:57] VITALS: BP 119/73; BP 132/86; PULSE 102; PULSE 120; RESP 20; TEMP 36.6; O2SAT 94; O2SAT 95; BMI 30.4
--- NOTE | 2022-08-11 14:24 | ED_ITS ---
HPI - General Adult General Chief complaint: Overdose Stated complaint: NARCOTIC OD,NARCAN GIVEN W/GOOD RESULT PER EMS Time Seen by Provider: 08/11/22 14:10 Source: patient and EMS Mode of arrival: EMS Limitations: no limitations History of Present Illness HPI narrative: 56-year-old male presents with possible overdose. Patient was witnessed by bystanders to be unresponsive. 911 was called. He was administered 4 mg of Narcan with positive response. Patient admits to smoking marijuana and drinking alcohol. Typically does not drink alcohol. Reports having 2 ?nips? but denies any narcotic use. Patient denies suicidal or homicidal ideation. Denies any prodrome such as chest pain, shortness breath, palpitations, lightheadedness. Patient's symptoms are described as severe. There is no clear relieving or exacerbating features. Symptoms did not radiate. Patient denies a significant history of drug or alcohol abuse. Related Data Home Medications Medication Instructions Recorded Confirmed cyclobenzaprine 10 mg tablet 1 tab PO TID 03/21/20 05/09/22 buprenorphine 8 mg-naloxone 2 mg 10 mg sublingual BID 11/06/21 05/09/22 sublingual film (Suboxone) Previous Rx's Medication Instructions Recorded ibuprofen 600 mg tablet 600 mg PO Q6H PRN pain #20 tabs 09/11/20 Allergies Allergy/AdvReac Type Severity Reaction Status Date / Time No Known Allergies Allergy Verified 05/09/22 10:43 [facility] Past Medical History Medical History Arthritis Chest pain Depression History of anxiety History of cardiac murmur Lab test negative for COVID-19 virus Substance abuse Surgical History Hx of excision of mass Hx of right inguinal hernia repair Social History Social History Alcohol intake: current Alcohol intake frequency: a few times a month Alcohol type: beer and hard liquor Cigarette Packs Per Day: 0.75 Cigarettes Per Day: 15.0 Substance Use Type: Marijuana Advance Directives: No Advance Directives Information Provided: Yes Physical Exam ED Vital Signs: Vital Signs - 24 hr 08/11/22 13:57 Temperature 97.8 F Pulse Rate 102 H Respiratory Rate 20 Blood Pressure 119/73 Pulse Oximetry 95 Oxygen Delivery Method Room Air BMI result Body Mass Index 30.4 GEN: Well developed, no acute distress, alert, oriented HEENT: Normocephalic, atraumatic, normal external ears, nose appears normal, no oropharyngeal edema or exudates Eyes: Normal to appearance Neck: Supple, no lymphadenopathy Respiratory: Talks in complete sentences, no respiratory distress, clear to auscultation bilaterally Cardiovascular: Regular rate and rhythm, no murmurs rubs or gallops Abdomen: Soft, nontender, nondistended, no guarding, no rebound Back: No CVA tenderness Extremities: No clubbing cyanosis or edema Neurologic: No focal neurologic deficits, cranial nerves 2-12 intact, strength is 5/5 bilaterally Skin: No rash Course Course Course Narrative: 56-year-old male presents with possible overdose. Patient reports smoking marij uana and drinking alcohol. Found unresponsive by bystanders. EMS administered Narcan 4 mg with positive response. Patient is currently, cooperative. He has no focal neurologic deficits. Slightly tremulous but no focal neurologic deficits. She denies any symptoms whatsoever however. Patient denies any suicidal homicidal ideation. Denies any drug abuse related issues. Reevaluation(s) Reevaluation #1: Patient is alert, oriented, no focal deficits. I discussed the results of his toxicology panel which included positive for fentanyl and opioids. He denies adamantly that he takes these drugs. He has been warned about buying marijuana from the street. Time: 15:50 Medical Decision Making Medical Decision Making [facility] Narrative: 56-year-old male presents with possible drug overdose with positive response to Narcan administration. Patient denies drug abuse. Denies any psychiatric related symptoms. On my evaluation, he is neurologically nonfocal but slightly tremulous. Patient will be observed for at least 2 hours in the emergency department. Will check a toxicology screen as well as an alcohol level. Doubt cardiac etiology, electrolyte abnormality, anemia or other significant acute abnormality. However, should symptoms arise well in the course of observation, will focus on further testing at this time Differential Diagnosis Differential Diagnoses: The differential diagnosis associated with the presentation includes (Accidental overdose, alcohol intoxication, drug abuse, alcohol abuse, hypoglycemia) Lab Data [facility] Lab Attestation statement: I reviewed the patient's lab results. Labs: Lab Results 04/10/23 04/10/23 04/10/23 Range/Units 14:40 14:42 15:18 POC Glucose 130 H (60-115) mg/dL Urine Opiates Screen POSITIVE H (Not Detect) Urine Fentanyl Screen POSITIVE H (Not Detect) Ur Barbiturates Screen Not Detected (Not Detect) Ur Phencyclidine Scrn Not Detected (Not Detect) Ur Amphetamines Screen Not Detected (Not Detect) U Benzodiazepines Scrn Not Detected (Not Detect) Urine Cocaine Screen Not Detected (Not Detect) U Marijuana (THC) Screen POSITIVE H (Not Detect) Ethyl Alcohol 29 mg/dL Independent Historian Clinical information obtained from an independent historian. History obtained from or confirmed by: EMS Discharge Plan Discharge Clinical Impression: Accidental overdose Patient Disposition: Home, Self-Care Instructions: Adult Overdose (ED) Prescriptions: No Action cyclobenzaprine 10 mg tablet 1 tab PO TID ibuprofen 600 mg tablet 600 mg PO Q6H PRN (Reason: pain) Qty: 20 0RF buprenorphine-naloxone [Suboxone] 8-2 mg film 10 mg sublingual BID Referrals: Rachel Corley TECHNOLOGY DIRECTOR [Primary Care Provider] - 3 days Print Language: Turkmen
[2022-08-11 14:47] LABS: Glucose, Whole Blood 130 mg/dL (60-115)
[2022-08-11 15:05] LABS: Ethanol 29 mg/dL
[2022-08-11 15:36] LABS: Amphetamine Screen Urine Not Detected (Not Detect); Barbiturates, Urine Not Detected (Not Detect); Benzodiazepines Screen Urine Not Detected (Not Detect); Cannabinoid Screen Urine POSITIVE (Not Detect); Cocaine Screen Urine Not Detected (Not Detect); Fentanyl, urine POSITIVE (Not Detect); Opiate Screen Urine POSITIVE (Not Detect); Phencyclidine Screen Urine Not Detected (Not Detect)
--- NOTE | 2022-08-11 16:19 | HO.SUDE ---
Met with pt in [facility] after pt presented with accidental overdose. Pt reports only smoking marijuana today, has not used opiates in over a year. Pt reports one ATS admission to [facility] one year ago for similar circumstance. Pt informed UDS positive for opiates and fentanyl, pt surprised at this information. Pt provided with fentanyl test strips. Harm reduction discussion. Pt has valid ID and plans to buy marijuana at the dispensary. Pt requesting to discharge, declines further recovery support.
== END 2022-08-11 16:27 | disposition home or self-care (01) ==
PROVIDERS: Emergency Provider Emergency Medicine; PCP Nurse Practitioner Primary Care
DX: T51.0X1A Toxic effect of ethanol, accidental (unintentional), initial encounter (principal); T40.711A Poisoning by cannabis, accidental (unintentional), initial encounter; Y92.9 Unspecified place or not applicable; Z79.899 Other long term (current) drug therapy; F17.210 Nicotine dependence, cigarettes, uncomplicated; Z71.6 Tobacco abuse counseling
CPT/HCPCS: 36415; 80307; 82077; 82947; 99282; 99283

== ENCOUNTER 2022-11-05 14:38 | Emergency (ER) | payer MEDICAID, SELFPAY ==
[2022-11-05 14:43] VITALS: BP 126/90; PULSE 102; O2SAT 92
[2022-11-05 14:45] VITALS: BP 132/80; PULSE 91; RESP 19; TEMP 37.3; O2SAT 90; BMI 29.5
--- NOTE | 2022-11-05 14:53 | MHC.EDTECH ---
PT O2 @ 88 - 89. PLACED ON 2L NC PER RN. O2 IMPROVED TO 92 - 93. RN AWARE
--- NOTE | 2022-11-05 15:54 | HO.SUDE ---
Met with pt in [facility] after pt presented to ED after accidental overdose. Pt sitting on stretcher, diaphoretic, awake, alert, easily engages in conversation. When asked how he is feeling, pt states a little drunk. Pt reports drinking 5-6 nips jeancarlos daily as well as 1 12 oz can of beer. Pt reports he consumes alcohol when he is anxious and it helps him calm down. Pt reports he has not used opioids in 4-5 months and used one bag heroin today, [place], which resulted in overdose. Pt reports he had been taking Suboxone and had been doing well with recovery. Per [facility], pts last Suboxone script was filled 04/18/22 for a 28 day supply, 6 mg daily. Pt had been seeing Dr. Mccauley at [facility] and plans to return to that [facility] as a walk in. Encouraged to walk in tomorrow. Pt declines ATS or [facility] linkage at this time. Discussed with Annette Huerta APRN.
--- NOTE | 2022-11-05 16:15 | ED.ALCOHOL ---
HPI - Alcohol General Chief Complaint: ETOH/Substance Use Stated Complaint: HEROIN OD,NARCAN GIVEN W/GOOD RESULT PER EMS Time Seen by Provider: 11/05/22 14:51 Source: patient and EMS Mode of arrival: EMS Limitations: no limitations History of Present Illness HPI narrative: 57-year-old male with reported history of schizophrenia, substance abuse presents after an accidental overdose. Patient admits drinking alcohol and taking some substance which he is not aware of what it was. He denies suicidal homicidal ideations. When asked if he is having hallucinations he says ?something like that. ? Patient reports to having been in an [facility] urine inpatient program approximately 6 months ago. He stopped going due to his own choice. Patient has an unclear exacerbating or relieving features. He reports symptoms as severe. He would like to go back to the program he was in Related Data Home Medications Medication Instructions Recorded Confirmed cyclobenzaprine 10 mg tablet 1 tab PO TID 03/21/20 05/09/22 buprenorphine 8 mg-naloxone 2 mg 10 mg sublingual BID 11/06/21 05/09/22 sublingual film (Suboxone) Previous Rx's Medication Instructions Recorded ibuprofen 600 mg tablet 600 mg PO Q6H PRN pain #20 tabs 09/11/20 Allergies Allergy/AdvReac Type Severity Reaction Status Date / Time No Known Allergies Allergy Verified 05/09/22 10:43 Review of Systems Review of Systems: CONSTITUTIONAL: Denies weight loss, fever and chills. HEENT: Denies changes in vision and hearing. RESPIRATORY: Denies SOB and cough. CV: Denies palpitations no CP. GI: Denies abdominal pain, nausea, vomiting and diarrhea. : Denies dysuria and urinary frequency. MSK: Denies myalgia and joint pain. SKIN: Denies rash and pruritus. NEUROLOGICAL: Denies headache and syncope. PSYCHIATRIC: Denies recent changes in mood. Denies anxiety and depression. All other ROS are negative unless in HPI PMFSH Past Medical History Medical History Arthritis Chest pain Depression History of anxiety History of cardiac murmur Lab test negative for COVID-19 virus Substance abuse Surgical History Hx of excision of mass Hx of right inguinal hernia repair Social History Social History Alcohol intake: current Alcohol intake frequency: 3 or more drinks per day Alcohol type: beer and hard liquor Cigarette Packs Per Day: 0.75 Cigarettes Per Day: 15.0 Smoked in Last 30 Days: No Use of substances other than those prescribed or required for medical reasons: Yes Substance Use Type: Heroin Advance Directives: No Advance Directives Information Provided: Yes Physical Exam ED Vital Signs: Vital Signs - 24 hr 11/05/22 14:45 11/05/22 18:07 11/05/22 19:03 Temperature 99.1 F 97.3 F 98.4 F Pulse Rate 91 80 77 Respiratory Rate 19 16 18 Blood Pressure 132/80 137/78 136/80 Pulse Oximetry 90 L 97 93 Oxygen Delivery Method Room Air Room Air Room Air BMI result Body Mass Index 29.5 GEN: Well developed, no acute distress, alert, oriented HEENT: Normocephalic, atraumatic, normal external ears, nose appears normal, no oropharyngeal edema or exudates Eyes: Normal to appearance Neck: Supple, no lymphadenopathy Respiratory: Talks in complete sentences, no respiratory distress, clear to auscultation bilaterally Cardiovascular: Regular rate and rhythm, no murmurs rubs or gallops Abdomen: Soft, nontender, nondistended, no guarding, no rebound Back: No CVA tenderness Extremities: No clubbing cyanosis or edema Neurologic: No focal neurologic deficits, cranial nerves 2-12 intact, strength is 5/5 bilaterally Skin: No rash Course Course Course Narrative: Patient has been observed for quite for 4 hours and 45 minutes. Patient would like to be discharged. Patient has been counseled regarding potential overdose. I will order a dose of Narcan to go. He would like that. He has outpatient resources which he will utilize. He was evaluated by our care team. He will be discharged at this time. Has decision-making capacity and wishes to leave. There is no reason to hold him against his wishes.. Medical Decision Making Lab Data 11/05/22 16:48 11/05/22 16:47 Labs: Lab Results 11/05/22 11/05/22 11/05/22 Range/Units 16:47 16:48 16:48 WBC 19.7 H (4.8-10.8) X10*3/uL RBC 5.03 (4.60-5.80) X10*6/uL Hgb 15.9 (14.0-18.0) g/dl Hct 46.5 (42.0-52.0) % MCV 92.4 (80.0-98.0) fL MCH 31.6 (27.0-33.0) pg MCHC 34.2 (31.0-36.0) g/dl RDW 13.5 (11.0-16.0) % Plt Count 182 (160-400) X10*3/uL MPV 11.2 (9.4-12.4) fL Immature Gran % (Auto) 1.1 H (0.0-0.4) % Neut % (Auto) 81.9 H (45-73) % Lymph % (Auto) 8.9 L (20-40) % Banks % (Auto) 7.7 (2-11) % Eos % (Auto) 0.1 (0-4) % Baso % (Auto) 0.3 (0-2) % Lymph # (Auto) 1.8 (1.2-4.9) X10*3/uL Banks # (Auto) 1.5 H (0.1-1.2) X10*3/uL Eos # (Auto) 0.0 (0.0-0.4) X10*3/uL Baso # (Auto) 0.1 (0.0-0.2) X10*3/uL Abs Immat Gran (auto) 0.21 H (0.00-0.03) X10*3/uL Absolute Neuts (auto) 16.2 H (2.0-8.3) x10*3/uL Absolute Nucleated RBC 0.000 (0.0-0.012) X10*3/uL Nucleated RBC % (auto) 0.0 (0.0-0.2) /100WBC Smear Tech's Comments VERIFIED Sodium 143 (135-145) mmol/L Potassium 4.1 (3.3-5.1) mmol/L Chloride 106 (96-108) mmol/L Carbon Dioxide 22 (22-29) mmol/L Anion Gap 19 (12-20) BUN 16 (9-16) mg/dL Creatinine 0.78 (0.5-1.4) mg/dL Estim Creat Clear Calc 119.1 Estimated GFR > 60 Random Glucose 110 (60-115) mg/dL Calcium 9.9 (8.4-10.2) mg/dL Total Bilirubin 0.4 (0.0-1.0) mg/dL AST 23 (5-37) U/L ALT 26 (0-40) U/L Alkaline Phosphatase 51 (39-117) U/L Total Protein 7.3 (6.5-8.0) g/dL Albumin 4.7 (3.5-5.0) g/dL Ethyl Alcohol 15 mg/dL COVID-19 (VENKAT) Negative (Negative) COVID-19 Clin Com See Note Discharge Plan Discharge Clinical Impression: Substance abuse, Accidental overdose Patient Disposition: Home, Self-Care Instructions: Adult Overdose (ED), Naloxone (Into the nose) Prescriptions: No Action cyclobenzaprine 10 mg tablet 1 tab PO TID ibuprofen 600 mg tablet 600 mg PO Q6H PRN (Reason: pain) Qty: 20 0RF buprenorphine-naloxone [Suboxone] 8-2 mg film 10 mg sublingual BID Referrals: [facility] [Provider Group]
[2022-11-05 17:11] LABS: Alanine Aminotransferase 26 U/L (0-40); Albumin Level 4.7 g/dL (3.5-5.0); Alkaline Phosphatase 51 U/L (39-117); Anion Gap 19 (12-20); Aspartate Amino Transferase 23 U/L (5-37); Bilirubin Total 0.4 mg/dL (0.0-1.0); Blood Urea Nitrogen 16 mg/dL (9-16); Calcium 9.9 mg/dL (8.4-10.2); Carbon Dioxide 22 mmol/L (22-29); Chloride 106 mmol/L (96-108); Creatinine Clr Calc Pharmacy 119.1; Estimated Glomerular Filt Rate > 60; Ethanol 15 mg/dL; Glucose Random 110 mg/dL (60-115); Potassium 4.1 mmol/L (3.3-5.1); Sodium 143 mmol/L (135-145); Total Protein 7.3 g/dL (6.5-8.0)
[2022-11-05 18:07] VITALS: BP 137/78; PULSE 80; RESP 16; TEMP 36.3; O2SAT 97
[2022-11-05 19:03] VITALS: BP 136/80; PULSE 77; RESP 18; TEMP 36.9; O2SAT 93
[2022-11-05 19:36] VITALS: BP 136/80; PULSE 77; RESP 18; TEMP 37; O2SAT 96
== END 2022-11-05 19:52 | disposition home or self-care (01) ==
PROVIDERS: Emergency Provider Emergency Medicine
DX: T50.901A Poisoning by unspecified drugs, medicaments and biological substances, accidental (unintentional), initial encounter (principal); F19.10 Other psychoactive substance abuse, uncomplicated; Y92.9 Unspecified place or not applicable; F11.20 Opioid dependence, uncomplicated; R91.8 Other nonspecific abnormal finding of lung field; F17.200 Nicotine dependence, unspecified, uncomplicated; Z20.822 Contact with and (suspected) exposure to COVID-19
CPT/HCPCS: 80053; 80307; 85025; 87635; 99284

== ENCOUNTER 2023-01-13 14:20 | Emergency (ER) | payer MEDICAID, SELFPAY ==
[2023-01-13 14:25] VITALS: BP 142/94; PULSE 132; O2SAT 95
--- NOTE | 2023-01-13 14:30 | ED.OVERDOSE ---
HPI - Overdose General Chief Complaint: ETOH/Substance Use Stated Complaint: MARIJUANA/ETOH USE, NARCAN GIVEN W/GOOD RESULT Time Seen by Provider: 01/13/23 14:28 Source: patient Mode of arrival: ambulatory Limitations: no limitations History of Present Illness HPI Narrative: 57 year old male presents to the ED after accidental overdose. PMH: chizophrenia, substance abuse presents after an accidental overdose with similar presentation November 05 at that time he complained of hallucinations as well. He arrived and was asking to go to the bathroom. He states he drinks but denies any drug use. He is sweaty on arrival but denies IV drug use he admits to taking pills and thinks he might have messed up. He does not want help with his drug or alcohol use. He ambulated and will be watched for 30 minutes. complaint: accidental overdose Related Data Home Medications Medication Instructions Recorded Confirmed cyclobenzaprine 10 mg tablet 1 tab PO TID 03/21/20 05/09/22 buprenorphine 8 mg-naloxone 2 mg 10 mg sublingual BID 11/06/21 05/09/22 sublingual film (Suboxone) Previous Rx's Medication Instructions Recorded ibuprofen 600 mg tablet 600 mg PO Q6H PRN pain #20 tabs 09/11/20 Allergies Allergy/AdvReac Type Severity Reaction Status Date / Time No Known Allergies Allergy Verified 05/09/22 10:43 Review of Systems Review of Systems: Review of systems: General: Patient denies any fever chills recent illness or falls Musculoskeletal: Denies back pain or body aches or other injuries HEENT: denies headache, runny nose, ear pain Respiratory: denies shortness of breath, cough Cardiovascular: no chest pain or palpitations : denies dysuria, frequency Abdomen: no nausea vomiting denies abdominal pain Extremities: no swelling, no pain Skin: no diaphoresis Yes all other systems are reviewed and are negative PMFSH Past Medical History Medical History Arthritis Chest pain Depression History of anxiety History of cardiac murmur Lab test negative for COVID-19 virus Substance abuse Surgical History Hx of excision of mass Hx of right inguinal hernia repair Social History Social History Alcohol intake: current Alcohol intake frequency: 3 or more drinks per day Alcohol type: beer and hard liquor Cigarette Packs Per Day: 0.75 Cigarettes Per Day: 15.0 Substance Use Type: Heroin Physical Exam Vital Signs: General: Well-appearing well-nourished in no signs of distress HEENT: Normocephalic atraumatic Neck: No signs of JVD, no masses no tenderness or lymphadenopathy Cardiovascular: Regular rate and rhythm Respiratory: Clear to auscultation bilaterally Abdomen: Soft nontender no masses Extremities: Normal pedal pulses no signs of edema Skin: Dry warm no rashes Back: No tenderness full ROM Medical Decision Making Medical Decision Making [facility] Narrative: Patient with Exon liver does is no signs of IV drug abuse he is unsure of he did appear patient is diaphoretic on arrival but otherwise looks normal he has no chest pain he has no loosening with time he states he feels safe to go home Differential Diagnosis Differential Diagnoses: The differential diagnosis associated with the presentation includes Alcohol use drug abuse overdose likely related to oral opiate. He was offered but refused a ERUM Admission/Observation Consideration of admission/observation: Escalation of care including admission/observation considered Patient very well as watch her for 30 minutes and no other signs intoxication he ambulated well will discharge home. Social Determinants Patient?s care significantly limited by Social Determinants of Health including: Inadequate housing, Alcoholism and drug addiction in family and Problems related to primary support group Discharge Plan Discharge Clinical Impression: Substance abuse, Smoker Patient Disposition: Home, Self-Care Instructions: Polysubstance Abuse (ED), Opioid Use Disorder (ED) Additional Instructions: You were seen in the emergency department after an overdose they responded and naloxone which only reacts to opioids. You had wanting help with your alcohol or substance use. Please call both her doctor if you have any other concerns please do not hesitate to come back to the emergency department. Prescriptions: No Action cyclobenzaprine 10 mg tablet 1 tab PO TID ibuprofen 600 mg tablet 600 mg PO Q6H PRN (Reason: pain) Qty: 20 0RF buprenorphine-naloxone [Suboxone] 8-2 mg film 10 mg sublingual BID
[2023-01-13 14:45] VITALS: BP 145/94; PULSE 109; RESP 14; TEMP 36.6; O2SAT 94; BMI 33.9
--- NOTE | 2023-01-13 15:47 | PC.NURSE ---
patient awake and alert, given drink.
--- NOTE | 2023-01-13 15:51 | MHC.RECOVRN ---
T/w met with pt for SUDE. Pt poor historian, denies substance use, reports only marijuana use. Pt reports he was in a program but I can't remember, I have schizophrenia and PTSD Pt unable to answer many of the questions of the SUDE, stating either I cannot remember or I don't know . Pt was able to say that he has a hx of OD, unable to articulate what substance. States it was more than 6 months ago, and that he checked himself in to [facility] and was there for 3 months Pt provided with folder of education and resource materials. Instructed to call the [facility] with any questions. Pt verbalized understanding. ED RN providing pt with take home NARCAN
--- NOTE | 2023-01-13 15:55 | PC.NURSE ---
patient refused the take home narcan
--- NOTE | 2023-01-13 17:06 | PC.NURSE ---
patient ambulated off of unit with steady gait.
--- NOTE | 2023-04-02 13:46 | HO.SUDE ---
Met with pt in ED13H who is here for potential OD to complete SUDE. Pt is a poor historian and informs he does not recall how many times he has OD befroe but the last was about 8 months ago and went to [facility]. Pt informs he has not been using opiates and is staying in a program in [place]. Pt states he took a few hits of THC from a friend and that was all he took before being unconscious. At this time pt is uninterested in any recovery support and does not want to talk about MAT or ATS and would like to go home. T/W reviewed harm reduction and overdose prevention with pt verbalizing understanding and having no questions or concerns at this time.
== END 2023-01-13 17:05 | disposition home or self-care (01) ==
PROVIDERS: Emergency Provider Student in an Organized Health Care Education/Training Program
DX: F19.10 Other psychoactive substance abuse, uncomplicated (principal); F17.210 Nicotine dependence, cigarettes, uncomplicated
CPT/HCPCS: 99282

== ENCOUNTER 2023-04-02 12:55 | Emergency (ER) | payer MEDICAID, SELFPAY ==
[2023-04-02 13:15] VITALS: BP 135/76; BP 138/90; PULSE 111; PULSE 83; RESP 17; TEMP 37.1; O2SAT 91; O2SAT 95; BMI 31.6
--- NOTE | 2023-04-02 13:37 | ED_ITS ---
HPI - Overdose General Chief Complaint: ETOH/Substance Use Stated Complaint: OVERDOSE,NARCAN GIVEN W/GOOD RESULT PER EMS Time Seen by Provider: 04/02/23 13:09 Source: patient and EMS Mode of arrival: EMS Limitations: language barrier (Patient's 1st language is Greek, he does speak Gambian, lpn rn was) History of Present Illness HPI Narrative: 57-year-old male with history of PTSD, schizophrenia, who presents emergency department for evaluation of unintentional overdose. Patient has no memory of what happened. He states that he was smoking marijuana and denies using any other drugs. According to nursing notes the patient was found unresponsive, he was given intranasal Narcan by police and then IV Narcan by paramedics. Patient's pupils were pinpoint and his respirations were assisted with bag-valve mass for 1-2 minutes prior to him responding to the Narcan. Patient denied being ill in any way. He denies having substance use disorder. He states he does not want any blood work for monitoring here in the emergency department any just wants to leave. In reviewing his record, the patient had at least 3 unintentional overdoses from using intranasal heroin last year. Related Data Home Medications Medication Instructions Recorded Confirmed cyclobenzaprine 10 mg tablet 1 tab PO TID 03/21/20 05/09/22 buprenorphine 8 mg-naloxone 2 mg 10 mg sublingual BID 11/06/21 05/09/22 sublingual film (Suboxone) Previous Rx's Medication Instructions Recorded ibuprofen 600 mg tablet 600 mg PO Q6H PRN pain #20 tabs 09/11/20 Allergies Allergy/AdvReac Type Severity Reaction Status Date / Time No Known Allergies Allergy Verified 05/09/22 10:43 Review of Systems Review of Systems: Yes all other systems are reviewed and are negative [facility] Past Medical History [facility] Narrative: Social history: He denies opiate use. He does smoke marijuana. Medical History Chest pain Substance abuse Lab test negative for COVID-19 virus Arthritis History of anxiety Depression History of cardiac murmur Surgical History Hx of right inguinal hernia repair Hx of excision of mass Social History Social History Alcohol intake: current Alcohol intake frequency: 3 or more drinks per day Alcohol type: beer and hard liquor Cigarette Packs Per Day: 0.75 Cigarettes Per Day: 15.0 Substance Use Type: Heroin Physical Exam Vital Signs: Vital Signs: Last Vital Signs Temp 98.7 F 04/02/23 13:15 Pulse 83 04/02/23 13:15 Resp 17 04/02/23 13:15 BP 138/90 H 04/02/23 13:15 Pulse Ox 91 L 04/02/23 13:15 O2 Del Method Room Air 04/02/23 13:15 BMI result Body Mass Index 31.6 Vital signs were normal Exam: General: Awake, alert in no distress Head: Normocephalic, atraumatic EENT: PERRL, Lids normal, sclera normal, conjunctiva normal, nose normal , ears normal, throat without erythema or exudates Neck: Supple, no adenopathy, no trachea midline or C-spine tenderness Lung: breath sounds symmetric, no wheezing, rales or rhonchi Chest: symmetric movement, nontender Heart: regular rate and rhythm, normal S1, S2 no murmurs or rubs Abdomen: soft, non-tender, nondistended, normal bowel sounds Back: no vertebral tenderness, no CVAT Extremities: no deformities, moves all extremities symmetrically Neuro: Awake, alert, oriented, normal speech, cranial nerves intact, moves all extremities symmetrically Psych: Pleasant, cooperative Medical Decision Making Medical Decision Making [facility]DM Narrative: 57-year-old male with history of PTSD, schizophrenia, opiate use disorder, arthritis, depression who presents emergency department for evaluation of unintentional opiate overdose. Patient was found unresponsive by bystanders and received intranasal Narcan and IV Narcan prior to coming to emergency department. Patient has no complaints and does not want further testing here in the emergency department. Patient was seen by our recovery counselor who offered patient detox and treatment but the patient refused. The patient is awake and alert and is capable of understanding the consequences of not being monitored therefore he will be allowed to leave the emergency department at this time. Patient was given intranasal Narcan and instructions about how to use opiates in a more safe manner. Differential Diagnosis Differential Diagnoses: The differential diagnosis associated with the presentation includes Differential diagnosis includes was not limited to heroin use, fentanyl use, polysubstance use, accidental overdose Admission/Observation Consideration of admission/observation: Escalation of care including admission/observation considered Prescription Management I considered prescription management with: Other (Discharge with intranasal Narc an) Discharge Plan Discharge Clinical Impression: Opiate or related narcotic overdose Qualifiers: Encounter type: initial encounter Injury intent: accidental or unintentional Qualified Code(s): T40.601A - Poisoning by unspecified narcotics, accidental (unintentional), initial encounter Instructions: Opioid Use Disorder (ED) Additional Instructions: Your found unresponsive and not breathing by bystanders. The [employer] police or the 1st responders on the scene and they gave you intranasal Narcan 4 mg and the paramedics then you view Narcan IV. Any drugs that you by on the street can be contaminated with fentanyl and you most likely overdosed on fentanyl today that may have contaminating the marijuana that you smoked. Your evaluated by our instructional coach at this time you do not want to get help with your drug use, if you change your mind come back to the hospital and we can help you. Your are being discharged home with intranasal Narcan. If you are going to continue to use heroin, you should make sure that there is a sober person with you that is not using drugs and that this person can administer intranasal Narcan in the event that you stop breathing. Follow-up with your doctor in 2 days. Please return to the emergency department if your symptoms get worse or if you develop any symptoms that are concerning to you. Prescriptions: No Action cyclobenzaprine 10 mg tablet 1 tab PO TID ibuprofen 600 mg tablet 600 mg PO Q6H PRN (Reason: pain) Qty: 20 0RF buprenorphine-naloxone [Suboxone] 8-2 mg film 10 mg sublingual BID
[2023-04-02 14:02] VITALS: O2SAT 96
[2023-04-02] MEDS: Naloxone HCl Nasal TAKE HOME 4 MG SPRAY 8 MG NOSTRILALT (14:02)
== END 2023-04-02 14:04 | disposition home or self-care (01) ==
PROVIDERS: Emergency Provider Emergency Medicine Emergency Medical Services
DX: T40.711A Poisoning by cannabis, accidental (unintentional), initial encounter (principal); Y92.9 Unspecified place or not applicable; F17.210 Nicotine dependence, cigarettes, uncomplicated; Z71.6 Tobacco abuse counseling; Z79.899 Other long term (current) drug therapy
CPT/HCPCS: 99283

== ENCOUNTER 2023-04-13 15:30 | Emergency (ER) | payer MEDICAID, SELFPAY ==
--- NOTE | ~2023-04-13 | XR_ITS ---
EXAMINATION: XR CHEST CLINICAL INFORMATION: Hypoxia COMPARISON: 05/09/2022 TECHNIQUE: Frontal view of the chest was obtained. FINDINGS: Lungs are hypoinflated. Mild interstitial prominence most likely secondary to hypoinflation. No consolidations, pleural effusions or lung masses are seen. XR/XR chest 1V IMPRESSION: Hypoinflated lungs without acute intrathoracic disease.
[2023-04-13 15:36] VITALS: BP 143/81; BP 151/79; PULSE 109; PULSE 125; RESP 14; TEMP 37; O2SAT 85; O2SAT 89; BMI 32.3
[2023-04-13 16:00] VITALS: BP 134/89; PULSE 94; RESP 18; TEMP 36.8; O2SAT 93
[2023-04-13] MEDS: Ondansetron ODT 4 MG TAB.RAPDIS TRANSLINGU (16:14)
[2023-04-13] MEDS: Naloxone HCl Nasal 4 MG SPRAY NOSTRILALT (16:15)
[2023-04-13 16:22] VITALS: BP 134/89; PULSE 86; PULSE 94; RESP 18; TEMP 36.8; O2SAT 93
--- NOTE | 2023-04-13 16:25 | ED_ITS ---
HPI - Psych General Chief Complaint: ETOH/Substance Use Stated Complaint: suspected drug/alcohol abuse. Awake but lethargic Time Seen by Provider: 04/13/23 16:00 Source: patient and old records reviewed Mode of arrival: EMS Limitations: no limitations History of Present Illness HPI Narrative: 57 yo male with PMH of substance abuse no longer on suboxone staying at [facility] in [place] - he has schizophrenia and is on medications. He came to [place] and admittedly did a line of coke - sniffed it. He was found sitting outside a liquor store. He was easily woken so narcan was given but in ED he has pinpoint pupils continues to fall asleep and has been hypoxic. complaint: substance abuse Onset (ago): hour(s) (couple) Duration: intermittent History of same: Yes Relieving factors: none Exacerbating factors: drug use Context: recent drug abuse Associated psychiatric symptoms: none Associated symptoms: nausea Treatments prior to arrival: none Related Data Home Medications Medication Instructions Recorded Confirmed cyclobenzaprine 10 mg tablet 1 tab PO TID 03/21/20 05/09/22 buprenorphine 8 mg-naloxone 2 mg 10 mg sublingual BID 11/06/21 05/09/22 sublingual film (Suboxone) Previous Rx's Medication Instructions Recorded ibuprofen 600 mg tablet 600 mg PO Q6H PRN pain #20 tabs 09/11/20 Allergies Allergy/AdvReac Type Severity Reaction Status Date / Time No Known Allergies Allergy Verified 04/13/23 15:49 Review of Systems Review of Systems: Constitutional : No Fever, No Chills ENT/Mouth : No Ear Pain, No Nasal Congestion, No sore throat Eyes: No Eye Pain, No Swelling, No Redness Cardiovascular : No Chest Pain, No SOB Respiratory : No Cough, No Sputum, No Dyspnea Gastrointestinal : No Nausea, No Vomiting, No Diarrhea, No Hematochezia, No Melena Genitourinary : No Dysuria, No Urinary Frequency, No Hematuria Musculoskeletal : No Myalgias Skin : No Skin Lesions, No rash Neuro : No Weakness, No Numbness, No Paresthesias, No Dizziness, No Headache Psych : no Anxiety, no Depression, no SI/HI All other systems reviewed and are negative [facility] Past Medical History Attestation statement: The following information was validated with the patient. Source: old records reviewed Medical History Chest pain Substance abuse Lab test negative for COVID-19 virus Arthritis History of anxiety Depression History of cardiac murmur Surgical History Hx of right inguinal hernia repair Hx of excision of mass Social History Social History Unable to assess alcohol history related to: Unknown Alcohol intake: current Alcohol intake frequency: holidays/special occasions only Alcohol type: beer and hard liquor Cigarette Packs Per Day: 0.75 Cigarettes Per Day: 15.0 Smoked in Last 30 Days: Yes Use of substances other than those prescribed or required for medical reasons: Yes Substance Use Type: Crack/Cocaine and Heroin Substance Use Frequency: Occasionally Last Used Substance: Hours (ago) Any prior treatment program specific to substance use: Yes Advance Directives: No Advance Directives Information Provided: No Physical Exam Vital Signs: Vital Signs: Last Vital Signs Temp 98.3 F 04/13/23 16:22 Pulse 94 04/13/23 16:22 Resp 18 04/13/23 16:22 BP 134/89 04/13/23 16:22 Pulse Ox 93 04/13/23 16:22 O2 Del Method Nasal Cannula 04/13/23 16:22 O2 Flow Rate 3 04/13/23 16:22 BMI result Body Mass Index 32.3 Appearance: Alert. Oriented X3. No acute distress. Eyes: Pupils pinpoint ENT: Pharynx normal. Neck: Normal inspection. Neck supple. CVS: Normal heart rate and rhythm. Pulses normal. Respiratory: No respiratory distress. Breath sounds normal. Abdomen: Soft and non-tender. Skin: Skin warm and clammy. pale skin color. Normal skin turgor. Extremities: No lower extremity edema. No calf ttp Neuro: Oriented X 3. No motor deficit. No sensory deficit. Course Course Course Narrative: doing well off oxygen Reevaluation(s) Reevaluation #1: no need for repeat narcan at this time will uber to the skilled nursing Reevaluation #2: I asked charge master coordinator to get uber ride back to his skilled nursing at 515pm - he has to be back in skilled nursing by 7pm or he will not be allowed in Medications Administered Discontinued Medications Generic Name Dose Route Start Last Admin Trade Name Freq PRN Reason Stop Dose Admin Naloxone HCl 4 mg 04/13/23 15:46 04/13/23 16:15 Naloxone Hcl Nasal 4 Mg [place] NOSTRILALT 04/13/23 15:47 Not Given ONCE ONE Naloxone HCl 4 mg 04/13/23 16:10 04/13/23 16:15 Naloxone Hcl Nasal 4 Mg [place] NOSTRILALT 04/13/23 16:11 4 mg ONCE ONE Administration Ondansetron HCl 4 mg 04/13/23 16:10 04/13/23 16:14 Ondansetron Odt 4 Mg Tab.Rapdis TRANSLINGU 04/13/23 16:11 4 mg ONCE ONE Administration Medical Decision Making Medical Decision Making MDM Narrative: 57 yo male with PMH of schizophrenia and substasnce abuse sniffed a line of cocaine prior to arrival was found sitting outside a liquor store - he has no head trauma he is GCS 15 but has pinpoint pupils and hypoxia - he denies CP/SOB. He wants to go back to his skilled nursing. He is sleepy on arrival and was desaturating even on NC O2. At this time given zofran and [place] 4mg narcan. He woke up and O2 satts improved. Will monitor - he denies symptoms SI/HI and does not want SUDE evaluation Differential Diagnosis Differential Diagnoses: The differential diagnosis associated with the presenta tion includes substance abuse, hypoxia, aspiration Admission/Observation Consideration of admission/observation: Escalation of care including admission/observation considered O2 improved after narcan - wants to leave observed 1.5 hours after Independent Interpretation I performed an independent interpretation of an: Plain X-Ray (no pneumonia) Radiology Impression Discussion of test interpretation with radiology: I have reviewed the radiologist's reading. Independent Historian Clinical information obtained from an independent historian. History obtained from or confirmed by: EMS External Record Review External record reviewed: Inpatient record Prescription Management I considered prescription management with: Other (narcan to take home) Discharge Plan Discharge Clinical Impression: Substance abuse Patient Disposition: Home, Self-Care Instructions: Polysubstance Abuse (ED) Additional Instructions: carry narcan with you. return for fevers, cough, difficulty breathing or any other concerns. lleva narcan contigo. Regrese si tiene fiebre, tos, dificultad para respirar o cualquier otra inquietud. Prescriptions: No Action cyclobenzaprine 10 mg tablet 1 tab PO TID ibuprofen 600 mg tablet 600 mg PO Q6H PRN (Reason: pain) Qty: 20 0RF buprenorphine-naloxone [Suboxone] 8-2 mg film 10 mg sublingual BID Print Language: Italian
== END 2023-04-13 18:15 | disposition home or self-care (01) ==
PROVIDERS: Emergency Provider Emergency Medicine
DX: F19.10 Other psychoactive substance abuse, uncomplicated (principal); R09.02 Hypoxemia; F11.20 Opioid dependence, uncomplicated; F17.210 Nicotine dependence, cigarettes, uncomplicated
CPT/HCPCS: 71045; 99284